=== PATIENT | male | born 1980 | race Two or more races ===

== ENCOUNTER 2019-05-25 18:02 | Emergency (ER) | payer OTHER ==
[~2019-05-25] VITALS: Ht 165.1 cm; Wt 20.4 kg
[2019-05-25] MEDS ORDERED: [UNRECOGNIZED DRUG - OTHER] PO (19:09)
[2019-05-25] MEDS ORDERED: KETOROLAC TROMETHAMINE 30 MG/ML VIAL IM ONE (20:00)
[2019-05-25 21:53] VITALS: BP 117/62
== END 2019-05-25 22:19 | disposition home or self-care (01) ==
LOC: EMS 18:04
DX: S82.832A Other fracture of upper and lower end of left fibula, initial encounter for closed fracture (principal); S82.302A Unspecified fracture of lower end of left tibia, initial encounter for closed fracture; W11.XXXA Fall on and from ladder, initial encounter; Y93.89 Activity, other specified; Y92.89 Other specified places as the place of occurrence of the external cause; Y99.8 Other external cause status
CPT/HCPCS: 29515; 73610; 96372; 99283; J1885